=== PATIENT | female | born 1990 | race Hispanic/Latino ===

== ENCOUNTER 2024-05-11 17:36 | Emergency (ER) | payer OTHER, SELFPAY ==
[2024-05-11 17:47] VITALS: BP 132/84; PULSE 81; RESP 16; TEMP 37.1; O2SAT 100; BMI 26.2
--- NOTE | 2024-05-11 18:39 | ED_ITS ---
<Statement entered by Kishan Guillory DO - 05/12/24 07:03> Dr. Guillory: I was immediately available in the department for consultation. Documentation has been reviewed. I agree with assessment and plan. HPI - Dental/Oral General Chief complaint: Dental/Oral Stated complaint: sent by [facility], tooth px Time Seen by Provider: 05/11/24 18:32 Source: patient Mode of arrival: Ambulatory History of Present Illness HPI Narrative: 34-year-old female presents to the ED with 3 days of left lower dental pain. 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 Patient states that she has a good routine where she uses hydrogen peroxide rinses and the water pick and has had good success finding of any infections. However, patient noted over the last 3 days that she has a left lower tooth that feels tender to touch with a likely abscess. Patient also feels some tenderness in the area of the anterior lymph nodes. No fever, chills. No nausea, vomiting. Patient recently moved to the area and has not established contact with a dentist yet. Related Data Previous Rx's Medication Instructions Recorded amoxicillin 875 mg-potassium 1 tab PO Q12H 14 days #28 tabs 05/11/24 clavulanate 125 mg tablet Allergies Allergy/AdvReac Type Severity Reaction Status Date / Time No Known Drug Allergies Allergy Verified 05/11/24 17:47 Review of Systems Constitutional Constitutional: Denies chills, Denies fatigue, Denies fever(s), Denies frequent falls, Denies lethargy and Denies weakness Eyes Eyes: Denies change in vision, Denies eye discharge, Denies irritation and Denies loss of vision ENT Ears, Nose, Mouth, and Throat: Denies change in voice, Reports dental pain, Denies dizziness, Denies neck pain, Denies sore throat and Denies throat swelling Cardiovascular Cardiovascular: Denies chest pain, Denies irregular heart rhythm, Denies lightheadedness, Denies palpitations, Denies dyspnea, Denies dyspnea on exertion and Denies orthopnea Respiratory Respiratory: Denies cough, Denies dyspnea, Denies dyspnea on exertion and Denies wheezing Gastrointestinal Gastrointestinal: Denies abdominal pain, Denies change in bowel habits, Denies diarrhea, Denies nausea and Denies vomiting Musculoskeletal Musculoskeletal: Denies neck pain and Denies numbness Integumentary/Breasts Skin/Breast: Denies pruritus, Denies erythema, Denies rash and Denies wounds Neurologic Neurologic: Denies behavioral changes, Denies confusion, Denies dizziness, Denies frequent falls, Denies loss of vision, Denies numbness and Denies weakness Psychiatric Psychiatric: Denies anxiety, Denies behavioral changes, Denies confusion, Denies depression, Denies homicidal ideation and Denies suicidal ideation Endocrine Endocrine: Denies fatigue, Denies flushing and Denies palpitations Hematologic/Lymphatic Hematologic/Lymphatic: Denies easy bruising Allergic/Immunologic Allergic/Immunologic: Denies urticaria, Denies throat swelling and Denies wheezing Patient History Social History Smoking Status: Current some day smoker Smoking Status: Current some day smoker tobacco type: vaping Substance Use Type: marijuana Exam Narrative Exam Narrative: Const General:?cooperative, healthy appearing and comfortable [facility] Head:?normal to inspection Ears:?hearing grossly normal bilaterally Nose:?external nose normal Face and sinus:?normal facial exam and sinuses nontender Mouth:?oral mucosae normal; there is tenderness to palpation of a left lower molar, with some swelling. Throat:?posterior oropharynx normal Eyes General:?appearance normal, both eyes and all related structures Neck Neck:?normal visual inspection and no lymphadenopathy noted Resp Effort & Inspection:?normal respiratory effort Auscultation:?clear to auscultation bilaterally Cardio Rate:?regular rate Rhythm:?regular rhythm Neuro General:?patient alert, patient awake and patient oriented x3 Initial Vital Signs Initial Vital Signs: Vital Signs Temperature 98.8 F 05/11/24 17:47 Pulse Rate 81 05/11/24 17:47 Respiratory Rate 16 05/11/24 17:47 Blood Pressure 132/84 05/11/24 17:47 Pulse Oximetry 100 05/11/24 17:47 Oxygen Delivery Method Room Air 05/11/24 17:47 Course Vital Signs Vital signs: Vital Signs - 8 hr 05/11/24 17:47 Temperature 98.8 F Pulse Rate 81 Respiratory Rate 16 Blood Pressure 132/84 Pulse Oximetry 100 Oxygen Delivery Method Room Air MDM - Dental/Oral MDM Narrative Medical decision making narrative: 34-year-old female presents to the ED with 3 days of left lower dental pain. Will treat with antibiotics for a possible dental abscess. Patient agrees to follow-up with a dentist as soon as possible for further evaluation and treatme nt. ED return precautions were discussed with patient. Patient verbalized understanding. Medical records reviewed: Yes Discharge Plan Departure Patient Disposition: Home Clinical Impression: Toothache Instructions: DI for Dental Pain Activity Restrictions/Additional Instructions: You were evaluated in the ED today for dental pain. You are being prescribed antibiotics for possible dental abscess. Please take the antibiotics as prescribed. Please follow-up with your dentist as soon as possible. Return to the ED if you have worsening symptoms. Prescriptions: New amoxicillin-pot clavulanate 875-125 mg tablet 1 tab PO Q12H 14 Days Qty: 28 0RF Referrals: Miscellaneous,Doctor, MD [Primary Care Provider] - Stand Alone Forms: Patient Portal/API
[2024-05-11 19:04] VITALS: BP 130/80; PULSE 80; RESP 20; TEMP 37; O2SAT 100
== END 2024-05-11 19:06 | disposition home or self-care (01) ==
PROVIDERS: Emergency Provider Student in an Organized Health Care Education/Training Program
DX: K08.89 Other specified disorders of teeth and supporting structures (principal)
CPT/HCPCS: 99281